=== PATIENT | female | born 1945 | race Two or more races ===

== ENCOUNTER 2017-02-15 10:10 | Emergency (ER) | payer OTHER ==
[~2017-02-15] VITALS: Ht 154.9 cm; Wt 56.7 kg
[2017-02-15 10:27] VITALS: BP 155/83
[2017-02-15] MEDS ORDERED: ACETAMINOPHEN 500 MG TAB PO ONE (10:39)
[2017-02-15] MEDS ORDERED: ACETAMINOPHEN 325 MG TAB PO ONE (10:45)
== END 2017-02-15 11:44 | disposition home or self-care (01) ==
LOC: ER 10:17
DX: S16.1XXA Strain of muscle, fascia and tendon at neck level, initial encounter (principal); S29.011A Strain of muscle and tendon of front wall of thorax, initial encounter; M50.321 Other cervical disc degeneration at C4-C5 level; S46.011A Strain of muscle(s) and tendon(s) of the rotator cuff of right shoulder, initial encounter; E78.5 Hyperlipidemia, unspecified; J45.909 Unspecified asthma, uncomplicated; E11.9 Type 2 diabetes mellitus without complications; Z88.0 Allergy status to penicillin; Z88.6 Allergy status to analgesic agent; V43.52XA Car driver injured in collision with other type car in traffic accident, initial encounter; Y93.89 Activity, other specified; Y99.8 Other external cause status; Y92.89 Other specified places as the place of occurrence of the external cause
CPT/HCPCS: 71020; 72040; 73030